=== PATIENT | female | born 2000 | race Caucasian/White ===

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

== ENCOUNTER 2022-12-21 10:30 | Outpatient (RCR) | payer OTHER, SELFPAY ==
--- NOTE | 2022-10-02 09:03 | PTOPEVAL1 ---
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 She states as a child she was given inserts that helped with her foot pain so she gradually stopped wearing them as she got older. For years she did not have pain even when not wearing her inserts. Within the last 3 months her feet started to hurt again, she was given new inserts, she is complaint with these. Her foot doc told her she could need surgery if therapy does not help. The medial side of her feet hurt with increased time spent in standing. She was also given an anti -inflammatory which helps. Assessment PT Clinical Summary Antoinette presents to therapy today for her initial evaluation with a diagnosis of coco flat feet. Today she demonstrate ankle ROM that is WNL and good strength, grossly 4+/5. She demonstrates a very low arch with static standing and no arch during ambulation. She demonstrates calcaneal inversion with slight increase in genu valgum d/t this. Skilled physical therapy services are indicated to address the deficits noted above, to manage pain, to improve intrinsic foot strength, and to improve her functional baseline. Plan of Care Interventions Check Out for Orthotic/Pr,Electrical Stimulation, Gait Training,Hot Pack/Cold Pack,Manual Therapy, Neuro Re-education,Patient/Caregiver Educati, Therapeutic Activities,Therapeutic Exercise PT Services Indicated Yes Treatment Frequency and 2x/wk for 4 wks Duration These treatments will address the objective and functional deficits as defined above. The patient will be advanced safely and appropriately in order for the patient to progress towards his/her prior level of function. Additional exercises will be introduced and as well as a comprehensive home exercise program upon discharge, if needed, ?to ensure carryover of functional gains achieved in the clinic. This treatment plan has been reviewed and agreement upon by the patient.
--- NOTE | 2022-10-29 17:17 | PTOPPROG ---
Assessment and note entered by Conrado Hoffman, PT, DPT Evaluation Information Assessment Status Progress Diagnosis coco foot pain Onset chronic Subjective Information Pt states she feels like she is walking more normal now than she did before. She states she still has pain but thinks it is slowly getting better. She states prior she would have increased pain at random times, she states now it is directly related to her time spent walking or standing. Assessment PT Clinical Summary Antoinette presents to therapy today for her progress report following 8 visits of skilled therapy to treat her coco flat feet. Today she demonstrate improving ankle stability during unilateral and dynamic exercises. She is still unable to create and maintain an arch during single side UE exercises like walking. She continues to have tenderness and increased tissue density in her feet coco. Continuation of skilled therapy services are indicated to address intrinsic foot strength and ankle stability, to manage pain, and to improve baseline function. Plan of Care Interventions Check Out for Orthotic/Pr,Electrical Stimulation, Gait Training,Hot Pack/Cold Pack,Manual Therapy, Neuro Re-education,Patient/Caregiver Educati, Therapeutic Activities,Therapeutic Exercise PT Services Indicated Yes Treatment Frequency and 2x/wk for 4 wks Duration These treatments will address the objective and functional deficits as defined above. The patient will be advanced safely and appropriately in order for the patient to progress towards his/her prior level of function. Additional exercises will be introduced and as well as a comprehensive home exercise program upon discharge, if needed, ?to ensure carryover of functional gains achieved in the clinic. This treatment plan has been reviewed and agreement upon by the patient.
--- NOTE | 2022-11-30 10:55 | PTOPPROG ---
Assessment and note entered by Conrado Hoffman, PT, DPT Evaluation Information Assessment Status Progress Diagnosis coco foot pain Onset chronic Subjective Information Pt states her feet are doing about the same. She states her day to day pain has decreased a little bit overall, but her feet still hurt significantly after she works. She went for 1 week without her shoe inserts this week and did not notice a change in her pain. Assessment PT Clinical Summary Antoinette presents to therapy today for her progress report following 8 visits of skilled therapy to treat her coco flat feet. Today she demonstrate improving ankle ROM to WNL. She demonstrates improved ankle stability during single leg stance, squat, and ambulation but still have significant reports of pain with prolonged standing. Continuation of skilled therapy services are indicated to improve functional strength and stability, to improve intrinsics strength, and to limit pain in standing to promote unlimited functional mobility. Plan of Care Interventions Check Out for Orthotic/Pr,Electrical Stimulation, Gait Training,Hot Pack/Cold Pack,Manual Therapy, Neuro Re-education,Patient/Caregiver Educati, Therapeutic Activities,Therapeutic Exercise PT Services Indicated Yes Treatment Frequency and 1x/wk for 4 wks Duration These treatments will address the objective and functional deficits as defined above. The patient will be advanced safely and appropriately in order for the patient to progress towards his/her prior level of function. Additional exercises will be introduced and as well as a comprehensive home exercise program upon discharge, if needed, ?to ensure carryover of functional gains achieved in the clinic. This treatment plan has been reviewed and agreement upon by the patient.
--- NOTE | 2022-12-25 08:59 | PCPTNOTE ---
This treatment is being continued on visit number [id number]. Please see documentation on both accounts to view progress. Completed interventions, outcomes, and problems have been marked as Inactive to facilitate the copying of the Care plan routine for recurring accounts.
== END 2023-01-03 09:34 | disposition home or self-care (01) ==
LOC: ANHGOSHPT 10:30
DX: M21.41 Flat foot [pes planus] (acquired), right foot (principal); M21.42 Flat foot [pes planus] (acquired), left foot
CPT/HCPCS: 97035; 97110; 97112; 97116; 97140; 97161; 97530

== ENCOUNTER 2023-01-03 09:35 | Outpatient (RCR) | payer OTHER, SELFPAY ==
--- NOTE | 2022-12-25 08:59 | PCPTNOTE ---
The treatment documented on this account is a continuation of the treatment documented on visit number [id number]. Please see documentation on both accounts to view progress. The Plan of Care has been transitioned and updated within the new V#. I have addressed and agree with the discipline specific Problems, Interventions, and Goals for the current certification period. Completed interventions, outcomes, and problems have been marked as Inactive to facilitate the copying of the Care plan routine for recurring accounts.
--- NOTE | 2023-01-02 16:41 | PTOPDC ---
Assessment and note entered by Conrado Hoffman, PT, DPT Evaluation Information Assessment Status Discharge Diagnosis coco foot pain Onset chronic Subjective Information Pt states she had a visit today with the chiropractor and he was able to manipulate her feet and for the first time today she does not have any pain. Pt reports no pain at rest, 7/10 at the worst on the L side last week. Reported Pain Level Pain Score 0: Self Report Assessment PT Clinical Summary Antoinette presents to therapy today for her progress report following 20 visits of skilled therapy to treat her coco foot pain. Overall demonstrates improved hip, core, and ankles strength as well as improved ankle motion since her last evaluation. She reports all of her pain has decreased within the last week now that she has been seeing a chiropractor. She wishes to keep continuing her POC with the chiropractor as that has been giving her the most relief. She will therefore be discharged at this time. Plan of Care PT Services Indicated No
== END 2023-01-03 09:36 | disposition home or self-care (01) ==
LOC: ANHGOSHPT 09:35
DX: M93.871 Other specified osteochondropathies, right ankle and foot (principal); M21.42 Flat foot [pes planus] (acquired), left foot; M21.41 Flat foot [pes planus] (acquired), right foot
CPT/HCPCS: 97110; 97140; 99199